=== PATIENT | male | born 1990 | race Caucasian/White ===

== ENCOUNTER 2021-08-14 10:01 | Emergency (ER) | payer SELFPAY ==
[2021-08-14 10:18] VITALS: BP 111/70; PULSE 66; TEMP 97.8; BMI 25.4
[2021-08-14] MEDS ORDERED: METOCLOPRAMIDE HCL INJECTION 10 MG/2 ML VIAL IVPUSH ONE (11:18)
[2021-08-14] MEDS ORDERED: SODIUM CHLORIDE 1,000 ML IV STA (11:18)
[2021-08-14] MEDS ORDERED: FAMOTIDINE 20 MG/50 ML IVPB 20 MG/50 ML MG IVPB ONE (11:19)
[2021-08-14] MEDS ORDERED: METOCLOPRAMIDE HCL INJECTION 10 MG/2 ML VIAL ONE (11:32)
[2021-08-14] MEDS ORDERED: FAMOTIDINE 10 MG/ML VIAL IVPB ONE (11:33)
[2021-08-14 12:19] LABS: BASO % 0.7 % (0-2.0); EOS % 0.4 % (0-4.5); HEMOGLOBIN 15.9 GM/dL (11.7-16.9); LYMPH % 29.6 % (8-40); MCH 30.4 pg (25.7-33.7); MCHC 33.8 g/dl (32.0-35.9); MEAN CELL VOLUME 90.2 fl (80-96); MEAN PLT VOLUME 8.3 fl (7.5-11.1); MONO % 6.1 % (3.8-10.2); NEUT % 63.2 % (42.8-82.8); PLATELET COUNT 329 10^3/uL (134-434); RBC 5.21 M/mm3 (4.00-5.60); RDW 13.1 % (11.9-15.9)
[2021-08-14 12:27] LABS: URINE APPEARANCE CLEAR; URINE BILIRUBIN NEGATIVE (NEGATIVE); URINE COLOR YELLOW; URINE GLUCOSE (UA) NEGATIVE (NEGATIVE); URINE KETONE 4+ (NEGATIVE); URINE LEUK ESTERASE NEGATIVE (NEGATIVE); URINE NITRITE NEGATIVE (NEGATIVE); URINE PROTEIN TRACE (NEGATIVE)
[2021-08-14 12:48] LABS: ALBUMIN 4.5 g/dl (3.4-5.0); CALCIUM 10.2 mg/dL (8.5-10.1)
[2021-08-14 12:51] LABS: CREATININE 0.9 mg/dL (0.55-1.3)
[2021-08-14 12:53] LABS: BILIRUBIN,TOTAL 1.2 mg/dL (0.2-1); TOT PROT 7.8 g/dl (6.4-8.2)
== END 2021-08-14 13:36 | disposition home or self-care (01) ==
LOC: JER 10:01
PROC: 3E033GC Introduction of Other Therapeutic Substance into Peripheral Vein, Percutaneous Approach (ICD-10-PCS; principal; 2021-08-14)
PROC: 3E033GC Introduction of Other Therapeutic Substance into Peripheral Vein, Percutaneous Approach (ICD-10-PCS; 2021-08-14)
PROC: 3E0337Z Introduction of Electrolytic and Water Balance Substance into Peripheral Vein, Percutaneous Approach (ICD-10-PCS; 2021-08-14)
DX: R11.2 Nausea with vomiting, unspecified (principal)
CPT/HCPCS: 36415; 80053; 81003; 83690; 85025; 99284-25

== ENCOUNTER 2022-10-12 14:37 | Emergency (ER) | payer SELFPAY ==
[2022-10-12 14:59] VITALS: BP 115/77; PULSE 95; RESP 18; BMI 22.6
[2022-10-12 18:13] VITALS: TEMP 98
== END 2022-10-12 18:15 | disposition short-term general hospital (02) ==
LOC: JER 14:37
DX: H40.052 Ocular hypertension, left eye (principal); H53.8 Other visual disturbances
CPT/HCPCS: 99285-25

== ENCOUNTER 2024-08-13 18:21 | Inpatient (IN) | payer OTHER ==
[2024-08-13 18:47] VITALS: BMI 25.8
[2024-08-13 19:42] LABS: ABSOLUTE IMMATURE GRANULOCYTES 0.02 x10^3/uL (0.0-0.031); BASOPHILS # 0.05 x10^3/uL (0.01-0.08); EOSINOPHIL % 1.1 % (0.8-7.0); EOSINOPHILS # 0.08 x10^3/uL (0.04-0.54); HEMATOCRIT 44.7 % (40.1-51.0); HEMOGLOBIN 14.8 g/dL (13.7-17.5); MCHC 33.1 g/dl (32.3-36.5); MEAN CELL VOLUME 89.9 fl (79.0-92.2); MEAN PLT VOLUME 10.1 fl (9.4-12.4); MONOCYTE # 0.55 x10^3/uL (0.30-0.82); MONOCYTE % 7.7 % (5.3-12.2); PLATELET COUNT 277 x10^3/uL (163-337)
[2024-08-13 19:52] LABS: CALCIUM 9.4 mg/dL (8.5-10.1)
[2024-08-13 19:53] LABS: ALBUMIN 3.8 g/dl (3.4-5.0); BLOOD UREA NITROGEN 8.8 mg/dL (7-18)
[2024-08-13 19:56] LABS: CREATININE 0.8 mg/dL (0.55-1.3)
[2024-08-13 19:58] LABS: TOT PROT 6.2 g/dl (6.4-8.2)
[2024-08-13 20:07] LABS: BILIRUBIN,TOTAL 0.4 mg/dL (0.2-1)
[2024-08-13] MEDS ORDERED: ALPRAZolam 1 MG TABLET PO ONE (20:50)
[2024-08-13] MEDS ORDERED: ALPRAZolam 0.25 MG TABLET ONE (21:01)
[2024-08-13] MEDS ORDERED: ESCITALOPRAM OXALATE 10 MG TABLET ONE (21:01)
[2024-08-13] MEDS ORDERED: GABAPENTIN 300 MG CAPSULE ONE (21:01)
[2024-08-13] MEDS ORDERED: methylPREDNISolone NA SUCC 1000 MG/8 ML VIAL ONE (21:01)
[2024-08-13] MEDS: ALPRAZolam 0.25 MG TABLET PO ONE (21:02)
[2024-08-13] MEDS: ESCITALOPRAM OXALATE 10 MG TABLET PO ONE (21:02)
[2024-08-13] MEDS: methylPREDNISolone NA SUCC 1000 MG/8 ML VIAL IVPB ONE (21:02)
[2024-08-13] MEDS: GABAPENTIN 300 MG CAPSULE PO ONE (21:02)
[2024-08-14] MEDS ORDERED: BACLOFEN 10 MG TABLET (FP) PO PRN (00:47)
[2024-08-14] MEDS: ALPRAZolam 0.25 MG TABLET PO SCH (01:52)
[2024-08-14] MEDS: GABAPENTIN 300 MG CAPSULE PO SCH (06:05)
[2024-08-14 09:10] LABS: ABSOLUTE IMMATURE GRANULOCYTES 0.07 x10^3/uL (0.0-0.031); BASOPHILS # 0.01 x10^3/uL (0.01-0.08); HEMATOCRIT 48.3 % (40.1-51.0); MCHC 33.1 g/dl (32.3-36.5); MEAN CELL VOLUME 89.8 fl (79.0-92.2); MEAN PLT VOLUME 10.6 fl (9.4-12.4); MONOCYTE # 0.04 x10^3/uL (0.30-0.82); MONOCYTE % 0.5 % (5.3-12.2); PLATELET COUNT 293 x10^3/uL (163-337); RDW 11.9 % (12.0-15.6)
[2024-08-14] MEDS: ENOXAPARIN NA (PORCINE) 40 MG/0.4 ML DISP.SYRIN SQ SCH (09:32)
[2024-08-14] MEDS: METHYLPREDNISOLONE NA SUCC 1,000 MG in SODIUM CHLORIDE 250 ML IVPB SCH (09:32)
[2024-08-14] MEDS: ESCITALOPRAM OXALATE 10 MG TABLET PO SCH (09:32)
[2024-08-14 09:57] LABS: POTASSIUM 4.3 mmol/L (3.5-5.1)
[2024-08-14 09:59] LABS: ALBUMIN 4.2 g/dl (3.4-5.0); CALCIUM 10.1 mg/dL (8.5-10.1)
[2024-08-14 10:00] LABS: BLOOD UREA NITROGEN 9.8 mg/dL (7-18)
[2024-08-14] MEDS ORDERED: methylPREDNISolone NA SUCC 1000 MG/8 ML VIAL IVPB SCH (10:00)
[2024-08-14 10:02] LABS: PHOSPHOROUS 4.1 mg/dL (2.5-4.9)
[2024-08-14 10:03] LABS: CREATININE 0.9 mg/dL (0.55-1.3)
[2024-08-14 10:04] LABS: BILIRUBIN,TOTAL 0.6 mg/dL (0.2-1); TOT PROT 6.9 g/dl (6.4-8.2)
[2024-08-14] MEDS: ACETAMINOPHEN 1000 MG/100 ML BAG IVPB PRN (10:21)
[2024-08-14] MEDS: PRAMIPEXOLE DIHYDROCHLORIDE 0.125 MG TABLET PO SCH (22:55)
[2024-08-14] MEDS: BACLOFEN 10 MG TABLET (FP) PO SCH (22:55)
[2024-08-15 08:34] LABS: HEMATOCRIT 45.5 % (40.1-51.0); MEAN CELL VOLUME 90.1 fl (79.0-92.2); MEAN PLT VOLUME 10.3 fl (9.4-12.4); PLATELET COUNT 295 x10^3/uL (163-337)
[2024-08-15 08:54] LABS: POTASSIUM 4.2 mmol/L (3.5-5.1)
[2024-08-15 09:08] LABS: ALBUMIN 3.9 g/dl (3.4-5.0); BLOOD UREA NITROGEN 11.6 mg/dL (7-18); CREATININE 0.8 mg/dL (0.55-1.3); MAGNESIUM 2.2 mg/dL (1.8-2.4); PHOSPHOROUS 3.8 mg/dL (2.5-4.9)
[2024-08-15 09:10] LABS: CALCIUM 9.9 mg/dL (8.5-10.1)
[2024-08-15 09:11] LABS: BILIRUBIN,TOTAL 0.5 mg/dL (0.2-1); TOT PROT 6.3 g/dl (6.4-8.2)
[2024-08-15] MEDS: ALPRAZolam 0.25 MG TABLET PO STA (18:30)
[2024-08-16 08:44] LABS: PH,URINE 6.5 (5.0-8.0); URINE APPEARANCE CLEAR; URINE BILIRUBIN NEGATIVE (NEGATIVE); URINE COLOR YELLOW; URINE GLUCOSE (UA) NEGATIVE (NEGATIVE); URINE KETONE NEGATIVE (NEGATIVE); URINE LEUK ESTERASE NEGATIVE (NEGATIVE); URINE NITRITE NEGATIVE (NEGATIVE); URINE PROTEIN TRACE (NEGATIVE); URINE UROBILINOGEN 0.2 mg/dL (0.2-1.0)
[2024-08-16] MEDS: methylPREDNISolone NA SUCC 1000 MG/8 ML VIAL IVPB SCH (12:57)
[2024-08-16] MEDS: ALPRAZolam 0.25 MG TABLET PO SCH (15:49)
[2024-08-16] MEDS ORDERED: ALPRAZolam 0.25 MG TABLET PO SCH (22:00)
[2024-08-17 10:08] VITALS: BP 132/93; PULSE 80; RESP 19; TEMP 97.9
== END 2024-08-17 15:14 | disposition home or self-care (01) | DRG 43 ==
LOC: JER 18:21 → JERBED 20:49 → J5S 23:55 → OBSVTOIN 08-14 08:59
PROVIDERS: ADMIT Internal Medicine
DX: G35 Multiple sclerosis (principal); F17.210 Nicotine dependence, cigarettes, uncomplicated; G43.909 Migraine, unspecified, not intractable, without status migrainosus; R20.2 Paresthesia of skin; R45.1 Restlessness and agitation
CPT/HCPCS: 36415; 70553-TC; 71045-TC-FY; 80053; 81003; 83735; 84100; 85025; 85027; 93005; 93010; 97116-GP; 97161-GP; 99285-25; G0378; J0131; J0475